=== PATIENT | male | born 1945 | race Caucasian/White ===

== ENCOUNTER 2020-09-25 10:55 | Emergency (ER) | payer MEDICARE, OTHER ==
[2020-09-25 11:11] VITALS: BP 145/94
[2020-09-25] MEDS ORDERED: PROPARACAINE 0.5% OPHTH DROPS 15 ML EACHEYE STA (12:15)
--- NOTE | 2020-09-25 12:38 | ED Physician Documentation ---
PD HPI OPHTHO - Stated complaint Stated Complaint: EYE IRRITATION - Chief complaint Chief Complaint: Heent - History obtained from History obtained from: Patient - History of Present Illness Timing - onset: How many days ago (2) Timing - duration: Days (2) Timing - details: Gradual onset Pain level max: 3 Pain level now: 2 Location: Right Quality / character: Burning, Aching Associated symptoms: Redness. No: Photophobia Contributing factors: Wears contacts. No: Exposed to conjunctivitis, Recent URI, FB, UV light (welding etc), Chemical exposure, acid, Chemical exposure, base, Blunt trauma Recently seen: Not recently seen - Additional information Additional information: Patient is a 74-year-old male who presents to the emergency department with 2 days of right eye redness and discomfort. No significant photophobia. Does wear contacts. Does not sleep in his contacts. Does not recall any exposures to illnesses or foreign bodies or UV has never had similar symptoms previously. Nothing makes it better or worse Review of Systems Constitutional: denies: Fever, Chills Eyes: denies: Loss of vision, Decreased vision Ears: denies: Ear pain Nose: denies: Rhinorrhea / runny nose, Congestion Throat: denies: Sore throat GI: denies: Vomiting Skin: denies: Rash Musculoskeletal: denies: Neck pain, Back pain Neurologic: denies: Headache PD PAST MEDICAL HISTORY - Past Medical History Cardiovascular: Hypertension Endocrine/Autoimmune: HyPOthyroidism - Present Medications Home Medications: Ambulatory Orders Medication Instructions Recorded Confirmed Ofloxacin 0.3% Ophth Drops 1 - 2 drops RIGHTEYE Q4H 7 Days #5 09/25/20 [Ocuflox 0.3% Ophth Drops] ml - Allergies Allergies/Adverse Reactions: Allergies Allergy/AdvReac Type Severity Reaction Status Date / Time No Known Drug Allergies Allergy Verified 09/25/20 11:08 - Social History Does the pt smoke?: No Smoking Status: Never smoker PD ED PE NORMAL - Vitals Vital signs reviewed: Yes - General General: Alert and oriented X 3, No acute distress - HEENT HEENT: Moist mucous membranes, Other (The left eye is normal. The right eye shows conjunctival injection. No fluorescein uptake. No corneal ulcers. No foreign bodies. No abrasions. Eyelids everted.) - Neck Neck: Supple, no meningeal sign - Respiratory Respiratory: No respiratory distress - Derm Derm: Warm and dry - Neuro Neuro: Alert and oriented X 3 Results - Vitals Vitals: Vital Signs - 24 hr 09/25/20 11:05 Temperature 36.7 C Heart Rate 57 L Respiratory 16 Rate Blood Pressure 145/94 H O2 Saturation 99 Oxygen O2 Source Room air PD MEDICAL DECISION MAKING - ED course Complexity details: considered differential, d/w patient ED course: Patient with what appears to be a bacterial conjunctivitis of the right eye. He does wear contacts and we will keep these out of his eyes. Do not see a corneal abrasion, but given the contact usage, we will place on ofloxacin. Do not see a corneal ulcer either. No rashes on the face. Patient states he will follow up with his car rental deliverer on Sunday if he is not improved. Patient will not wear contacts until he is cleared. Patient counseled regarding signs and symptoms for which I believe and urgent re-evaluation would be necessary. Patient with good understanding of and agreement to plan and is comfortable going home at this time This document was made in part using voice recognition software. While efforts are made to proofread this document, sound alike and grammatical errors may occur. Departure - Departure Disposition: Home, Self Care Clinical Impression: Conjunctivitis Qualifiers: Conjunctivitis type: unspecified Laterality: right Qualified Code(s): H10.9 - Unspecified conjunctivitis Condition: Good Instructions: ED Conjunctivitis Nonspecific Follow-Up: your,doctor next week for recheck [Other] Prescriptions: Ofloxacin 0.3% Ophth Drops [Ocuflox 0.3% Ophth Drops] 1 - 2 drops RIGHTEYE Q4H 7 Days #5 ml Comments: use the eyedrops as prescribed. Follow-up with your eye doctor on Sunday if not improved. Return if you worsen. Do not wear contacts until the symptoms have resolved. [facility] prescription was [facility] to [facility] Discharge Date/Time: 09/25/20 12:40
== END 2020-09-25 12:40 | disposition home or self-care (01) ==
LOC: ED 10:55
DX: H10.9 Unspecified conjunctivitis (principal); I10 Essential (primary) hypertension
CPT/HCPCS: 99282; 99284; J3490

== ENCOUNTER 2021-11-20 18:26 | Emergency (ER) | payer MEDICARE, OTHER ==
[2021-11-20 18:34] VITALS: BP 122/97
[2021-11-20] MEDS ORDERED: ceFAZolin 1 GM VIAL IM STA (18:50)
[2021-11-20] MEDS ORDERED: CEPHALEXIN 250 MG Prepack 8 CAP BOTTLE PO STA (18:51)
--- NOTE | 2021-11-20 18:57 | ED Physician Documentation ---
History of Present Illness - Stated complaint Stated Complaint: POST OP COMPLICATIONS - Chief complaint Chief Complaint: Ext Problem - Additonal information Additional information: 75-year-old male presents emergency department for concerns of postoperative infection in his right thumb at the site where he is fracture was pinned on 04 November. Patient reports that about 2 months ago he did fracture his thumb. He was followed by hand specialist through [facility] and had surgery in late October. He has over the last 2 days noticed increased swelling erythema and induration of the right thumb with some now serous drainage at the site where the pin is. There has been no fevers or lymphangitis. He is right-hand dominant Review of Systems Constitutional: denies: Fever, Chills Skin: reports: Lesions. denies: Rash Musculoskeletal: reports: Joint pain PD PAST MEDICAL HISTORY - Past Medical History Cardiovascular: Hypertension Endocrine/Autoimmune: HyPOthyroidism - Past Surgical History Past Surgical History: Yes Ortho: Knee replacement - Present Medications Home Medications: Ambulatory Orders Medication Instructions Recorded Confirmed Atenolol [Tenormin] 50 mg PO DAILY 11/20/21 11/20/21 Irbesartan [Avapro] 300 mg PO DAILY 11/20/21 11/20/21 Levothyroxine Sodium 175 mcg PO DAILY 11/20/21 11/20/21 [Levothyroxine] Omeprazole Magnesium 20 mg PO DAILY 11/20/21 11/20/21 cephALEXin [Keflex] 500 mg PO Q6H #28 cap 11/20/21 hydroCHLOROthiazide [Hydrodiuril] 25 mg PO DAILY 11/20/21 11/20/21 - Allergies Allergies/Adverse Reactions: Allergies Allergy/AdvReac Type Severity Reaction Status Date / Time No Known Drug Allergies Allergy Verified 11/20/21 18:34 - Social History Does the pt smoke?: No Smoking Status: Never smoker PD ED PE EXPANDED - General General: Alert, No acute distress, Well developed/nourished - Extremities Extremities: Right finger(s) (Moderate swelling erythema and induration of the right thumb between the MCP and DIP joint. Medial thumb has a pin exiting it with fair amount of serous drainage exiting) Results - Vitals Vitals: Vital Signs - 24 hr 11/20/21 18:30 Temperature 36.6 C Heart Rate 71 Respiratory 16 Rate Blood Pressure 122/97 H O2 Saturation 97 Oxygen O2 Source Room air PD MEDICAL DECISION MAKING - ED course Complexity details: considered differential, d/w patient ED course: 75-year-old male presents emergency department for evaluation of right thumb erythema, induration and swelling that began 2 days ago. He underwent fixation of this thumb on 04 November in which a pin was placed to stabilize the fracture. He does have a moderate amount of serous drainage exiting from the pin site. This is very concerning for infected hardware. I discussed with the patient that he will absolutely need antibiotics but that [facility] does not have appropriate orthopedic services to manage this. I discussed that further evaluation and care would likely include transfer to an appropriate facility but he reports to me that he is unable to wait in the emergency department for this treatment. He would simply like oral antibiotics today and reports that he will follow-up with his orthopedic surgeon tomorrow. Departure - Departure Disposition: 01 Home, Self Care Clinical Impression: Cellulitis of right thumb Condition: Stable Record reviewed to determine appropriate education?: Yes Prescriptions: cephALEXin [Keflex] 500 mg PO Q6H #28 cap Comments: Isra you are seen today for increased pain, swelling redness and drainage from the operative site of your right thumb. The symptoms began about 2 days ago. You do have your pin in the thumb. This is very concerning for hardware infection. We discussed that because [facility] does not have the appropriate services to manage this it is likely that you would need transfer to a hospital with appropriate services but you have declined to wait for further evaluation of that. Therefore we are starting you on some antibiotics. It is imperative that you follow-up with your orthopedic surgeons tomorrow. Tonight in the emergency department you were given an injection of an antibiotic called Ancef. You are to fill the prescription for the cephalexin. You should take 500 mg every 6 hours for the next 7 days. This has been sent to [facility] in [place].
== END 2021-11-20 19:10 | disposition home or self-care (01) ==
LOC: ED 18:26
DX: L03.011 Cellulitis of right finger (principal); Z98.890 Other specified postprocedural states; I10 Essential (primary) hypertension
CPT/HCPCS: 96372; 99283

== ENCOUNTER 2022-04-13 12:54 | Outpatient (CLI) | payer MEDICARE, OTHER ==
--- NOTE | 2022-04-13 16:31 | XRAY Report ---
PROCEDURE: Chest 2 View X-Ray INDICATIONS: BRONCHITIS,ACUTIE TECHNIQUE: 2 views of the chest were acquired. COMPARISON: None. FINDINGS: Surgical changes and devices: None. Lungs and pleura: No pleural effusions or pneumothorax. Lungs are clear. Mediastinum: Mediastinal contours are normal. Heart size is normal. Bones and chest wall: No suspicious bony abnormalities. Soft tissues appear unremarkable. IMPRESSION: No acute cardiopulmonary process. Reviewed by: Deshawn Herring on 04/13/2022 4:30 PM [facility] Approved by: Deshawn Herring on 04/13/2022 4:30 PM [facility] Station ID: [id number]
== END 2022-04-13 12:55 | disposition home or self-care (01) ==
LOC: DI 12:54
PROVIDERS: ATTEND Family Medicine
DX: J20.9 Acute bronchitis, unspecified (principal)